=== PATIENT | female | born 1955 | race Caucasian/White ===

== ENCOUNTER 2018-10-25 17:20 | Emergency (ER) | payer BC ==
--- NOTE | 2018-10-25 19:35 | EDM.PDOC ---
ED HPI GENERAL MEDICAL PROBLEM - General Chief Complaint: ENT Problem Stated Complaint: THRUSH Time Seen by Provider: 10/25/18 19:00 Source of Information: Reports: Patient History Limitations: Reports: No Limitations - History of Present Illness INITIAL COMMENTS - FREE TEXT/NARRATIVE: treated for bronchitis for 3 weeks with augmentin and steroids, now on steroid inhaler, white patches to mouth, tongue sore, hoarseness since yesterday. Also vaginal discharge and burning. Oral/Mouth Pain Score (Numeric/FACES): 2 - Related Data Allergies Allergy/AdvReac Type Severity Reaction Status Date / Time levofloxacin [From Levaquin] Allergy Hives Verified 10/25/18 17:47 metronidazole [From Flagyl] Allergy Hives Verified 10/25/18 17:47 Penicillins Allergy Rash Verified 10/25/18 17:47 morphine AdvReac Vomiting Verified 10/25/18 17:47 Home Meds: Home Meds Acetaminophen 1,000 mg PO Q6HR PRN 10/25/18 [History] Albuterol Sulfate [Proair Hfa] 2 puff INH Q4HR PRN 10/25/18 [History] Albuterol [Proventil Neb Soln] 2.5 ml INH Q4H PRN 10/25/18 [History] Ascorbic Acid [Vitamin C] 500 mg PO BID 10/25/18 [History] Biotin 5 mg PO DAILY 10/25/18 [History] Calcium Carbonate/Vitamin D2 [Oyster Shell Calcium-Vit D Tab] 1 tab PO TID 10/25 [History] Cetirizine [ZyrTEC] 10 mg PO DAILY 10/25/18 [History] ClonazePAM [KlonoPIN] 0.5 mg PO BEDTIME 10/25/18 [History] FLUoxetine HCl [Prozac] 20 mg PO DAILY 10/25/18 [History] Fish Oil/[place]-3 Fatty Acids [Fish Oil 1,000 MG] 1,000 mg PO DAILY 10/25/18 [ History] Fluticasone Furoate [Arnuity Ellipta] 1 puff INH DAILY 10/25/18 [History] Lisinopril [Prinivil] 2.5 mg PO DAILY 10/25/18 [History] Lutein/Zeaxanthin [Ocuvite Lutein 25-5 mg Softgel] 1 cap PO DAILY 10/25/18 [ History] Magnesium 250 mg PO DAILY 10/25/18 [History] Montelukast [Singulair] 10 mg PO BEDTIME 10/25/18 [History] Multivitamin [[place] Multivitamin] 1 tab PO DAILY 10/25/18 [History] Omeprazole 40 mg PO BIDAC 10/25/18 [History] Oxymetazoline HCl [Nasal [place]] 2 spray INH BID 10/25/18 [History] Patient's Own Medication [Ptom] 1 spray INH BID 10/25/18 [History] Potassium 99 mg PO DAILY 10/25/18 [History] Turmeric 400 mg PO DAILY 10/25/18 [History] Umeclidinium Vian [Incruse Ellipta*] 1 puff INH DAILY 10/25/18 [History] Vitamin B Complex 1 cap PO DAILY 10/25/18 [History] Vitamin E 400 units PO DAILY 10/25/18 [History] Zinc Gluconate [Zinc] 50 mg PO BID 10/25/18 [History] metroNIDAZOLE [Vandazole 0.75% Gel] 1 applic TOP BID 10/25/18 [History] traZODone HCl [Trazodone HCl] 200 mg PO BEDTIME 10/25/18 [History] Past Medical History Respiratory History: Reports: Asthma, Bronchitis, Recurrent, COPD Genitourinary History: Reports: Other (See Below) Other Genitourinary History: 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 - Past Surgical History HEENT Surgical History: Reports: Adenoidectomy, Tonsillectomy GI Surgical History: Reports: Appendectomy, Bariatric Procedure Female Surgical History: Reports: Hysterectomy, Oophorectomy, Other (See Below) Other Female Surgeries/Procedures: has one ovary left. benign bladder tumor removed. Social & Family History - Family History Family Medical History: Noncontributory - Tobacco Use Smoking Status *Q: Never Smoker - Caffeine Use Caffeine Use: Reports: Coffee - Recreational Drug Use Recreational Drug Use: No ED ROS ENT - Review of Systems Review Of Systems: ROS reveals no pertinent complaints other than HPI. ED EXAM, ENT - Physical Exam Exam: See Below Exam Limited By: No Limitations General Appearance: Alert, No Apparent Distress Eye Exam: Bilateral Eye: EOMI Ears: Normal External Exam, Normal TMs Nose: Normal Inspection Mouth/Throat: Hoarse Voice, Pharyngeal Erythema, Other (thick white patches to tongue, few scattered to cheeks. ). No: Tongue Swelling, Tonsillar Erythema, Tonsillar Exudates Head: Atraumatic, Normocephalic Neck: Normal Inspection, Full Range of Motion. No: Lymphadenopathy (L), Lymphadenopathy (R) Respiratory/Chest: No Respiratory Distress, Lungs Clear, Normal Breath Sounds Cardiovascular: Normal Peripheral Pulses, Regular Rate, Rhythm (Female) Exam: Deferred Extremities: Normal Inspection, Normal Range of Motion Neurological: Alert, Oriented, Normal Cognition Psychiatric: Anxious Skin: Warm, Dry, Intact, Normal Color Course - Vital Signs Last Recorded V/S: Last Vital Signs Temp 98.2 F 10/25/18 18:41 Pulse 72 10/25/18 18:41 Resp 18 10/25/18 18:41 BP 123/60 10/25/18 18:41 Pulse Ox 95 10/25/18 18:41 Departure - Departure Time of Disposition: 19:29 Disposition: Home, Self-Care 01 Condition: Good Clinical Impression: Chloé infection - Discharge Information *PRESCRIPTION DRUG MONITORING PROGRAM REVIEWED*: Not Applicable *COPY OF PRESCRIPTION DRUG MONITORING REPORT IN PATIENT JAVED: Not Applicable Instructions: Oral Thrush, Adult, [id number] Referrals: Elvira Neal MD [Primary Care Provider] - Forms: ED Department Discharge Additional Instructions: diflucan 150mg daily for one week if continued oral symptoms nystatin 100,000 u/ml 5ml 4 times daily for one week Clinic follow up as needed frequent oral rinses change toothbrush oral rinses after use of inhalers
== END 2018-10-25 19:35 | disposition home or self-care (01) ==
LOC: DL.ED 17:20
DX: B37.0 Candidal stomatitis (principal); J44.9 Chronic obstructive pulmonary disease, unspecified; Z79.899 Other long term (current) drug therapy; Z88.0 Allergy status to penicillin; Z88.5 Allergy status to narcotic agent; Z88.1 Allergy status to other antibiotic agents; Z88.8 Allergy status to other drugs, medicaments and biological substances
CPT/HCPCS: 99283